=== PATIENT | female | born 1975 | race Caucasian/White ===

== ENCOUNTER 2017-06-07 17:45 | Observation (INO) ==
--- NOTE | 2017-06-07 17:50 | Emergency Department Note ---
Disposition Clinical Impression: Chest pain Disposition: Admitted As Inpatient Condition: Good Referrals: Sage Cunningham MD [Primary Care Provider] - Forms: ED Satisfaction Letter General Adult HPI - General Chief complaint: ED Chest Pain Stated complaint: CHEST PAIN Time Seen by Provider: 06/07/17 17:50 Source: patient Mode of arrival: private vehicle Limitations: no limitations Nursing Notes Reviewed: Yes Vital Signs Reviewed: Yes - History of Present Illness HPI Narrative: 41-year-old white female presents emergency department via ambulance complaining of a chest pain under her left breast. She describes it as a sharp burning pain under her left breast. She says it started while she was sitting and playing with her phone. She says it makes her feel short of breath. She says she also noted a quivering in her lower lip, but the pain did not radiate into her neck she says that she did feel it in her left armpit. She has had 4 baby aspirin in the ambulance and continues to have pain. She appears to be comfortable. She has had some valvular heart disease and has been told in the past that she had angina. She says that she has had a cardiac catheter that was negative. - Related Data Home Medications Medication Instructions Recorded Confirmed Gabapentin [Neurontin] 800 mg PO BID 02/28/15 06/07/17 Levothyroxine [Synthroid] 25 mcg PO QAM 02/28/15 06/07/17 Metformin [Glucophage] 1,000 mg PO BIDWM 02/28/15 06/07/17 Omeprazole [PriLOSEC] 40 mg PO DAILY 02/28/15 06/07/17 Simvastatin [Zocor] 20 mg PO HS 02/28/15 06/07/17 Albuterol Sulfate [Albuterol 2 puff IH Q6HR PRN 04/07/15 06/07/17 Inhaler] FLUoxetine HCl [Prozac] 60 mg PO DAILY 11/03/16 06/07/17 LORazepam [Ativan] 0.5 mg PO BID PRN 11/03/16 06/07/17 Lidocaine Patch [Lidoderm 5% patch] 1 patch TP DAILY PRN 11/03/16 06/07/17 Albuterol Neb [Proventil Neb] 2.5 mg IH TID PRN 12/21/16 06/07/17 Lisinopril [Zestril] 10 mg PO DAILY 12/21/16 06/07/17 Ranitidine HCl [Zantac] 300 mg PO HS 12/21/16 06/07/17 Tizanidine HCl [Zanaflex] 4 mg PO TID 12/21/16 06/07/17 Aspirin/Acetaminophen/Caffeine 1 tab PO DAILY PRN 01/21/17 06/07/17 [Excedrin Migraine Caplet] Gabapentin [Neurontin] 1,600 mg PO HS 01/21/17 06/07/17 Quetiapine Fumarate [SEROquel] 50 mg PO HS 01/21/17 06/07/17 Previous Rx's Medication Instructions Recorded Meclizine [Antivert] 25 mg PO TID PRN #18 tablet 03/14/17 Ondansetron ODT [Zofran ODT] 4 mg SL Q8HR PRN #14 tab.rapdis 03/14/17 Promethazine [Phenergan] 25 mg RC Q8HR #12 supp.rect 03/19/17 Tizanidine HCl [Zanaflex] 4 mg PO TID #12 cap 05/26/17 Allergies Allergy/AdvReac Type Severity Reaction Status Date / Time chlordiazepoxide Allergy Hallucinati Verified 06/07/17 17:54 [From Librax (with ng methscopolamine)] Clidinium Allergy Hallucinati Verified 06/07/17 17:54 [From Librax (with ng clidinium)] scopolamine Allergy Hallucinati Verified 06/07/17 17:54 [From Librax (with ng methscopolamine)] meperidine [From Demerol] AdvReac Rash Verified 06/07/17 17:54 metoclopramide [From Reglan] AdvReac Palpitation Verified 06/07/17 17:54 s nabumetone [From Relafen] AdvReac Palpitation Verified 06/07/17 17:54 s All systems ED: reviewed and negative except as stated. Constitutional: Denies: fever, chills, weakness, weight change Eyes: Denies: eye pain, eye discharge, vision change ENT ED: Denies: ear pain, throat pain, dental pain, hearing loss, epistaxis, congestion, dysphagia Cardiovascular: Reports: as per HPI, chest pain. Denies: palpitations, dyspnea on exertion, edema, syncope Respiratory: Reports: as per HPI, dyspnea Gastrointestinal: Denies: abdominal pain, nausea, vomiting, diarrhea, constipation, hematemesis, melena, hematochezia Genitourinary: Denies: dysuria, frequency, hematuria, discharge Musculoskeletal: Denies: back pain, neck pain, arthralgia, myalgia Integumentary: Denies: rash, abrasion, lesions Neurological: Denies: headache, weakness, numbness, paresthesias, confusion, abnormal gait, vertigo Psychiatric: Denies: anxiety, depression, suicidal thoughts, homicidal thoughts , auditory hallucinations, visual hallucinations Endocrine: Denies: fatigue Hematological/Lymphatic: Denies: easy bleeding, easy bruising Allergic/Immunologic: Denies: facial swelling, urticaria Past Medical History - Past Medical History Medical history: Reports: asthma, diabetes, GERD, hyperlipidemia, hypertension, thyroid disease, valvular heart disease, other Surgical history: Reports: cholecystectomy, hysterectomy, orthopedic, other, sinus surgery, other Psychiatric history: Reports: anxiety DIRECTOR OF CRITICAL CARE history: Reports: no DIRECTOR OF CRITICAL CARE history - Social History Smoking Status: Current every day smoker Smokeless Tobacco Status: No Alcohol use: Reports: none Drug use: Reports: none Physical Exam - General Limitations: no limitations General appearance: alert, in no apparent distress - Head Head exam: atraumatic, normocephalic, normal inspection - Eye Eye exam: Present: normal appearance, PERRL, EOMI - ENT ENT exam: normal exam, normal oropharynx, mucous membranes moist - Neck Neck exam: Present: normal inspection, full ROM, trachea midline - Chest Chest inspection: Present: normal inspection, symmetric chest wall rise. Absent : tenderness - Respiratory Respiratory exam: Present: normal lung sounds bilaterally - Cardiovascular Cardiovascular exam: Present: regular rate, normal rhythm, normal heart sounds - Abdominal Exam Abdominal exam: Present: soft, Non-Tender. Absent: tenderness, distention, guarding, rebound, rigidity, organomegaly, mass, pulsatile mass - Extremities Exam Extremities exam: Present: normal inspection, full ROM. Absent: tenderness, pedal edema - Back Exam Back exam: Present: normal inspection, full ROM. Absent: tenderness - Neurological Exam Neurological exam: Present: alert, oriented X3, CN II-XII intact. Absent: motor sensory deficit - Psychiatric Psychiatric exam: Present: normal affect, normal mood - Skin Skin exam: Present: warm, dry, intact, normal color Course Course Narrative: The patient's pain was relieved with nitroglycerin 2. Spoke with Dr. Potter at 1900 who is the hospitalist on-call and the patient will be observed overnight. Vital Signs Temperature 98.8 F 06/07/17 17:50 Pulse Rate 74 06/07/17 17:50 Respiratory Rate 16 06/07/17 17:50 Blood Pressure 161/84 06/07/17 17:50 O2 Sat by Pulse Oximetry 99 06/07/17 17:50 Temperature 98.8 F 06/07/17 17:50 Pulse Rate 77 06/07/17 19:14 Respiratory Rate 14 06/07/17 19:14 Blood Pressure 133/81 06/07/17 19:14 O2 Sat by Pulse Oximetry 98 06/07/17 19:14 Oxygen Delivery Oxygen Delivery Nasal Cannula Medical Decision Making - Lab Data Lab results reviewed: Yes I reviewed the patient's lab results. Result diagrams: 06/07/17 18:08 06/07/17 18:08 Lab Results 06/07/17 06/07/17 06/07/17 Range/Units 18:08 18:08 18:08 WBC 10.9 (4.3-11.1) K/mcL RBC 5.21 H (3.82-4.97) M/mcL Hgb 15.9 H (11.5-15.4) g/dL Hct 44.2 (35.3-44.9) % MCV 84.8 (83.0-100.0) fL MCH 30.5 (28.0-33.3) pg MCHC 36.0 H (31.6-35.5) g/dL RDW 12.1 (11.5-14.5) % Plt Count 181 (140-400) K/mcL MPV 8.9 L (9.4-12.4) fL Immature Gran % 0.3 (0-4) % Seg Neutrophils % 60.5 % Lymphocytes % 30.9 % Monocytes % 5.0 % Eosinophils % 2.7 % Basophils % 0.6 % Neutrophils # 6.6 (1.6-8.9) K/mcL Lymphocytes # 3.4 (0.6-4.6) K/mcL Monocytes # 0.6 (0.0-1.3) K/mcL Eosinophils # 0.3 (0.0-0.6) K/mcL Basophils # 0.1 (0.0-0.2) K/mcL PT 11.3 (9.4-12.1) Seconds INR 1.1 Sodium 138 (136-145) mEq/L Potassium 3.8 (3.5-4.5) mEq/L Chloride 101 (98-109) mEq/L Carbon Dioxide 27 (19-29) mEq/L BUN 6 L (7-20) mg/dL Creatinine 0.80 (0.57-1.11) mg/dL Est GFR ( Amer) > 60 (> 60) Est GFR (Non-Af Amer) > 60 (> 60) BUN/Creatinine Ratio 8 (6-26) Glucose 252 H (70-99) mg/dL Calculated Osmolality 292 (280-300) Calcium 9.3 (8.6-10.8) mg/dL Total Bilirubin 0.5 (0.2-1.2) mg/dL AST 22 (5-34) Units/L ALT 27 (0-55) Units/L Alkaline Phosphatase 55 (38-126) Units/L Troponin I (0-0.03) ng/mL Serum Total Protein 6.4 (6.0-8.3) g/dL Albumin 3.6 (3.5-5.0) g/dL Globulin 2.8 (2.4-3.5) g/dL Albumin/Globulin Ratio 1.3 (1.1-2.2) 06/07/17 Range/Units 18:08 WBC (4.3-11.1) K/mcL RBC (3.82-4.97) M/mcL Hgb (11.5-15.4) g/dL Hct (35.3-44.9) % MCV (83.0-100.0) fL MCH (28.0-33.3) pg MCHC (31.6-35.5) g/dL RDW (11.5-14.5) % Plt Count (140-400) K/mcL MPV (9.4-12.4) fL Immature Gran % (0-4) % Seg Neutrophils % % Lymphocytes % % Monocytes % % Eosinophils % % Basophils % % Neutrophils # (1.6-8.9) K/mcL Lymphocytes # (0.6-4.6) K/mcL Monocytes # (0.0-1.3) K/mcL Eosinophils # (0.0-0.6) K/mcL Basophils # (0.0-0.2) K/mcL PT (9.4-12.1) Seconds INR Sodium (136-145) mEq/L Potassium (3.5-4.5) mEq/L Chloride (98-109) mEq/L Carbon Dioxide (19-29) mEq/L BUN (7-20) mg/dL Creatinine (0.57-1.11) mg/dL Est GFR ( Amer) (> 60) Est GFR (Non-Af Amer) (> 60) BUN/Creatinine Ratio (6-26) Glucose (70-99) mg/dL Calculated Osmolality (280-300) Calcium (8.6-10.8) mg/dL Total Bilirubin (0.2-1.2) mg/dL AST (5-34) Units/L ALT (0-55) Units/L Alkaline Phosphatase (38-126) Units/L Troponin I 0.02 (0-0.03) ng/mL Serum Total Protein (6.0-8.3) g/dL Albumin (3.5-5.0) g/dL Globulin (2.4-3.5) g/dL Albumin/Globulin Ratio (1.1-2.2) - Radiology Data Radiology results reviewed: Yes I reviewed the patient's radiology results. One view of the chest: IMPRESSION: Clear lungs. D/ / Rito Murphy MD / Rito Murphy MD - EKG Data EKG #1 EKG results narrative: Twelve-lead EKG showed normal sinus rhythm, rate of 76, normal axis, no acute ST elevation or depression appreciated: Normal EKG
[2017-06-07 18:13] LABS: Basophils # 0.1 K/mcL (0.0-0.2); Basophils % 0.6 %; Eosinophils # 0.3 K/mcL (0.0-0.6); Eosinophils % 2.7 %; Hematocrit 44.2 % (35.3-44.9); Hemoglobin 15.9 g/dL (11.5-15.4); Immature Granulocytes % 0.3 % (0-4); Lymphocytes # 3.4 K/mcL (0.6-4.6); Lymphocytes % 30.9 %; Mean Corpuscular Hemoglobin 30.5 pg (28.0-33.3); Mean Corpuscular Volume 84.8 fL (83.0-100.0); Mean Platelet Volume 8.9 fL (9.4-12.4); Monocytes # 0.6 K/mcL (0.0-1.3); Neutrophils # 6.6 K/mcL (1.6-8.9); Platelet Count 181 K/mcL (140-400); Red Blood Count 5.21 M/mcL (3.82-4.97); Red Cell Distribution Width 12.1 % (11.5-14.5); Segmented Neutrophils % 60.5 %
[2017-06-07 18:18] LABS: INR 1.1; Prothrombin Time 11.3 Seconds (9.4-12.1)
[2017-06-07 18:27] LABS: Alanine Aminotransferase 27 Units/L (0-55); Albumin 3.6 g/dL (3.5-5.0); Albumin/Globulin Ratio 1.3 (1.1-2.2); Alkaline Phosphatase 55 Units/L (38-126); Aspartate Amino Transferase 22 Units/L (5-34); BUN/Creatinine Ratio 8 (6-26); Bilirubin,Total 0.5 mg/dL (0.2-1.2); Blood Urea Nitrogen 6 mg/dL (7-20); Calcium 9.3 mg/dL (8.6-10.8); Carbon Dioxide 27 mEq/L (19-29); Chloride 101 mEq/L (98-109); Globulin 2.8 g/dL (2.4-3.5); Glucose 252 mg/dL (70-99); Osmolality,Calculated 292 (280-300); Potassium 3.8 mEq/L (3.5-4.5); Sodium 138 mEq/L (136-145); Total Protein 6.4 g/dL (6.0-8.3); eGFR For African Americans > 60 (> 60); eGFR For Non-African Americans > 60 (> 60)
[2017-06-07] MEDS: Nitroglycerin 0.4 MG TAB.SUBL SL PRN ×2 (18:36→18:47)
[2017-06-07] MEDS ORDERED: Naloxone 0.4 MG/ML INJ IVP PRN (20:46)
[2017-06-07] MEDS ORDERED: Ondansetron 4 MG/2 ML VIAL IVP ONE (20:46)
[2017-06-07] MEDS ORDERED: *HR* Promethazine 25 MG/ML VIAL IVP PRN (20:46)
[2017-06-07] MEDS ORDERED: *HR* Morphine 2 MG/ML SYRINGE IVP ONE (20:46)
[2017-06-07] MEDS ORDERED: Nitroglycerin 0.4 MG TAB.SUBL SL PRN (20:46)
[2017-06-07] MEDS ORDERED: Ondansetron ODT 4 MG TAB.RAPDIS SL PRN ×2 (20:46)
[2017-06-07] MEDS ORDERED: Albuterol 2.5 MG/3 ML NEBULIZER IH PRN (20:46)
[2017-06-07] MEDS ORDERED: Acetaminophen/Aspirin/Caffeine TABLET PO PRN (20:46)
[2017-06-07] MEDS ORDERED: Acetaminophen 325 MG TABLET PO PRN (20:46)
[2017-06-07] MEDS ORDERED: Ibuprofen 400 MG TABLET PO PRN (20:46)
[2017-06-07] MEDS ORDERED: *HR* LORazepam 0.5 MG TABLET PO PRN (20:46)
[2017-06-07] MEDS ORDERED: Famotidine 20 MG TABLET PO SCH (21:00)
[2017-06-07] MEDS ORDERED: TIZANIDINE HCL 4 MG PO SCH (21:00)
[2017-06-07] MEDS ORDERED: Gabapentin 400 MG CAPSULE PO SCH ×2 (21:00)
[2017-06-07] MEDS: tiZANidine 4 MG TABLET PO SCH (22:47)
[2017-06-08] MEDS: *HR* Morphine 2 MG/ML SYRINGE IVP PRN ×2 (02:22→09:07)
[2017-06-08] MEDS ORDERED: Levothyroxine 25 MCG TABLET PO SCH (07:00)
[2017-06-08] MEDS ORDERED: *HR* Metformin 500 MG TABLET PO SCH (08:00)
[2017-06-08] MEDS ORDERED: FLUoxetine 20 MG CAPSULE PO SCH (09:00)
[2017-06-08] MEDS: Gabapentin 400 MG CAPSULE PO SCH ×2 (09:12→12:35)
[2017-06-08] MEDS: tiZANidine 4 MG TABLET PO SCH (09:13)
--- NOTE | 2017-06-08 11:53 | Internal Med History&Physical ---
Date of Encounter: 06/08/17 Time of Encounter: 11:44 Assessment and Plan (1) Chest pain Current visit: Yes Status: Acute Qualifiers: Chest pain type: unspecified Qualified Code(s): R07.9 - Chest pain, unspecified (2) Chest pain Current visit: Yes Status: Acute Patient admitted for complaints of chest pain rule out OR. Patient with vague complaints of pain that radiates from underneath her left breast to the left chest flank and describes her pain as a sharp intermittent. Patient was complaints of palpitations and slight dyspnea during ER admission no further complaints since her admission. She has had 2 sets of troponins which were negative. Chest x-ray was nonacute. Patient is complaining of pain on several occasions since her admission and has been medicated with morphine stating minimal relief. Patient with long history of chest pain: Back at least 5 years during which she had a catheterization which was negative and echocardiogram showed aortic valve regurgitation. We will continue with serial troponins. We will discuss with Dr. Potter for continued evaluation Qualifiers: Chest pain type: unspecified Qualified Code(s): R07.9 - Chest pain, unspecified (3) Type 2 diabetes mellitus Current visit: No Status: Chronic As with uncontrolled diabetes. We will continue with fingersticks which have shown consistently greater than 200. We will continue with oral diabetic medications and cover with sliding scale. Patient states last hemoglobin A1c greater than 9. We will obtain a hemoglobin A1c with next blood draw. Qualifiers: Diabetes mellitus complication detail: with other neurological complication Diabetes mellitus senior care insulin use: without middle or intermediate school principal use Qualified Code(s): E11.49 - Type 2 diabetes mellitus with other diabetic neurological complication (4) Hypertension Current visit: No Status: Chronic Vital signs stable. We will continue his current medications Qualifiers: Hypertension type: essential hypertension Qualified Code(s): I10 - Essential (primary) hypertension (5) Bipolar II disorder Current visit: No Status: Chronic Currently no acute issues. We will continue patient on her current psychiatric medications. Patient is interacting well with staff with no behavior issues reported. (6) Asthma Current visit: No Status: Chronic No acute issues. Lungs are clear to auscultation. Patient does continue with complaints of pain to left chest flank, but no pulmonary origin noted during exam. Continue with current medications Qualifiers: Asthma severity: mild Asthma persistence: unspecified Asthma complication type: uncomplicated Qualified Code(s): J45.909 - Unspecified asthma, uncomplicated Internal Medicine - H&P: HPI Admitted From: Home Plans for Post Hospital Care: Home History of present illness: Ms. Salgado is a 41 year old female Patient was admitted through the emergency department last evening with complaints of chest pain and rule out OR. Patient states that yesterday afternoon she began to have chest pain to her left chest flank underneath her left breast which radiated to her left lateral chest. Patient described the pain as intermittent sharp and states that no activity increased or relieve the pain. She states that her pain she expresses today was similar to pain she had in the past. Patient states at the time of her chest pain yesterday she was also having palpitations and was diaphoretic. States that she felt somewhat short of breath, but also relates a history of asthma. States that she did not use her inhaler yesterday. Patient states that she has had palpitations before in the past, but cannot relate those to any activity also. States she has had syncopal episodes in the past and has been evaluated by her PCP. States that she has had a tilt table test which was negative. Patient states that she has had chest pain on several occasions over the past several years. Patient relates that about approximately 5 years ago she had a cardiac catheter which was negative for vascular disease. States she has also had last echocardiogram approximately 5 years ago and that had shown slight aortic valve regurgitation. Patient states since that, over the past 5 years she has had several admissions for chest pain but has been ruled out on each admission. Patient states that her pain was relieved during her ER visit with his had several episodes of the pain returning since her admission overnight. She states that she is received pain medication by IV which has decreased pain but it is not completely left. States no relief with nitroglycerin during ER. Patient has had 2 sets of troponins which both have been negative. Patient denies any further palpitations or shortness of breath since her admission. Patient states a history of uncontrolled diabetes. She states that her recent hemoglobin A1c was greater than 9 and that during fingersticks at home she routinely measures greater than 200. Also states a history of tobacco abuse, smoking 1-2 packs cigarettes a day. Past Med Surg Social Fam HX - Past Medical History Medical history: asthma, diabetes, GERD, hyperlipidemia, hypertension, thyroid disease, valvular heart disease, other Psychiatric history: anxiety, other (Patient states history of bipolarism) - Past Surgical History Surgical History: cholecystectomy, hysterectomy, orthopedic, other, sinus surgery, other - Social History Smoking Status: Current every day smoker Packs per day: 1-1.5 Smokeless Tobacco Status: No Alcohol use: none Drug use: none Current living situation: Home - Independent Activity Level: Independent ambulation Recent Out of Country Travel Within the Last 8 Weeks: No Exposure or Possible Exposure to Illness During Travel: No - Family History Father Living Status: Still Living Hx Family Cardiac Disorders: Yes (HTN, CVA) Hx Family Cancer: Yes (Lung) Hx Family GI Disorders: Yes (Ulcers, hiatal hernia) Hx Family Endocrine Disorder: Yes (DM) Hx Family Neuromuscular Disorders: No Hx Family Neurologic Disorders: No Hx Family HEENT Disorders: No Hx Family Autoimmune Disorders: No Internal Medicine - H&P: Meds Gabapentin [Neurontin] 800 mg PO BID 02/28/15 [History] Levothyroxine [Synthroid] 25 mcg PO QAM 02/28/15 [History] Metformin [Glucophage] 1,000 mg PO BIDWM 02/28/15 [History] Omeprazole [PriLOSEC] 40 mg PO DAILY 02/28/15 [History] Simvastatin [Zocor] 20 mg PO HS 02/28/15 [History] Albuterol Sulfate [Albuterol Inhaler] 2 puff IH Q6HR PRN 04/07/15 [History] FLUoxetine HCl [Prozac] 60 mg PO DAILY 11/03/16 [History] LORazepam [Ativan] 0.5 mg PO BID PRN 11/03/16 [History] Lidocaine Patch [Lidoderm 5% patch] 1 patch TP DAILY PRN 11/03/16 [History] Albuterol Neb [Proventil Neb] 2.5 mg IH TID PRN 12/21/16 [History] Lisinopril [Zestril] 10 mg PO DAILY 12/21/16 [History] Ranitidine HCl [Zantac] 300 mg PO HS 12/21/16 [History] Tizanidine HCl [Zanaflex] 4 mg PO TID 12/21/16 [History] Aspirin/Acetaminophen/Caffeine [Excedrin Migraine Caplet] 1 tab PO DAILY PRN [History] Gabapentin [Neurontin] 1,600 mg PO HS 01/21/17 [History] Quetiapine Fumarate [SEROquel] 50 mg PO HS 01/21/17 [History] Meclizine [Antivert] 25 mg PO TID PRN #18 tablet 03/14/17 [Rx] Ondansetron ODT [Zofran ODT] 4 mg SL Q8HR PRN #14 tab.rapdis 03/14/17 [Rx] Promethazine [Phenergan] 25 mg RC Q8HR #12 supp.rect 03/19/17 [Rx] Tizanidine HCl [Zanaflex] 4 mg PO TID #12 cap 05/26/17 [Rx] 3 Allergy/AdvReac Type Severity Reaction Status Date / Time chlordiazepoxide Allergy Hallucinati Verified 06/07/17 17:54 [From Librax (with ng methscopolamine)] Clidinium Allergy Hallucinati Verified 06/07/17 17:54 [From Librax (with ng clidinium)] scopolamine Allergy Hallucinati Verified 06/07/17 17:54 [From Librax (with ng methscopolamine)] meperidine [From Demerol] AdvReac Rash Verified 06/07/17 17:54 metoclopramide [From Reglan] AdvReac Palpitation Verified 06/07/17 17:54 s nabumetone [From Relafen] AdvReac Palpitation Verified 06/07/17 17:54 s All Systems PM: A 10-system review of systems was performed and is negative for pertinent findings except as documented above in the HPI. - Constitutional Constitutional: no chills, no fever(s), no night sweats - EENT Eyes: no change in vision, no discharge, no pain, no photophobia Ears: no ear discharge, no ear pain, no tinnitus Nose, mouth and throat: no dysphagia, no nasal discharge, no neck pain, no sore throat - Cardiovascular Cardiovascular ROS IM: chest pain, palpitations, no dyspnea, no irregular heart rhythm, no lightheadedness - Respiratory Respiratory: dyspnea, no dyspnea on exertion, no wheezing, no stridor, no pain on inspiration, no chest congestion, no excessive phlegm production - Gastrointestinal Gastrointestinal: no abdominal pain, no diarrhea, no hematemesis, no hematochezia, no melena, no nausea, no vomiting - Genitourinary Genitourinary: no change in urinary stream, no dysuria, no flank pain, no hematuria - Musculoskeletal Musculoskeletal ROS IM: no numbness, no tingling - Integumentary Integumentary IM: no rash, no unusual bruising - Neurological Neurological ROS: no confusion, no convulsions, no focal weakness, no numbness, no tingling, no tremor(s) - Psychiatric Psychiatric: anxiety - Allergic/Immunologic Allergic/Immunologic: as per HPI - Constitutional Vitals: Temp Pulse Resp BP Pulse Ox 98.3 F 73 16 114/73 97 06/08/17 07:42 06/08/17 07:42 06/08/17 07:42 06/08/17 07:42 06/08/17 07:42 General appearance: Present: cooperative, A&O X 3, pleasant - Head Head exam: Present: atraumatic, normocephalic - Neck Neck exam general surgery: Present: supple, trachea midline. Absent: lymphadenopathy - Respiratory Respiratory exam: Present: CTAB. Absent: accessory muscle use, rales, rhonchi, wheezes Additional comments: Lungs clear to refills and diminished throughout bases. No wheezes or rubs heard. - Cardiovascular Cardiovascular exam: Present: RRR, +S1, +S2, systolic murmur. Absent: diastolic murmur, gallop, rubs Additional comments: No chest tenderness on palpation. Patient has a soft systolic murmur. - GI/Abdominal GI/Abdominal exam: Present: normal bowel sounds, soft, no peritoneal signs. Absent: distended, tenderness - Extremities Exam Extremities exam: Present: warm, radial pulses palpable and symmetrical. Absent : calf tenderness, cyanotic, pedal edema - Neurological Exam Neurological exam: Present: CN II-XII intact, oriented X3, no focal deficits. Absent: pronater drift, facial droop, speech deficit - Skin Skin exam: Present: dry, intact Internal Med - H&P Results - Labs CBC & Chem 7: 06/07/17 18:08 06/07/17 18:08 Labs: Cardiac Enzymes 06/08/17 06/08/17 Range/Units 02:10 08:33 Troponin I 0.01 0.00 (0-0.03) ng/mL - VTE Documentation of Mechanical Device: Graduated compression elastic hosiery
[2017-06-08 12:57] VITALS: BP 111/56
--- NOTE | 2017-06-08 13:46 | Discharge Summary ---
Date of Encounter: 06/08/17 Time of Encounter: 13:44 - Discharge Medications Home Medications: Gabapentin [Neurontin] 800 mg PO BID 02/28/15 [History] Levothyroxine [Synthroid] 25 mcg PO QAM 02/28/15 [History] Metformin [Glucophage] 1,000 mg PO BIDWM 02/28/15 [History] Omeprazole [PriLOSEC] 40 mg PO DAILY 02/28/15 [History] Simvastatin [Zocor] 20 mg PO HS 02/28/15 [History] Albuterol Sulfate [Albuterol Inhaler] 2 puff IH Q6HR PRN 04/07/15 [History] FLUoxetine HCl [Prozac] 60 mg PO DAILY 11/03/16 [History] LORazepam [Ativan] 0.5 mg PO BID PRN 11/03/16 [History] Lidocaine Patch [Lidoderm 5% patch] 1 patch TP DAILY PRN 11/03/16 [History] Albuterol Neb [Proventil Neb] 2.5 mg IH TID PRN 12/21/16 [History] Lisinopril [Zestril] 10 mg PO DAILY 12/21/16 [History] Ranitidine HCl [Zantac] 300 mg PO HS 12/21/16 [History] Tizanidine HCl [Zanaflex] 4 mg PO TID 12/21/16 [History] Aspirin/Acetaminophen/Caffeine [Excedrin Migraine Caplet] 1 tab PO DAILY PRN [History] Gabapentin [Neurontin] 1,600 mg PO HS 01/21/17 [History] Quetiapine Fumarate [SEROquel] 50 mg PO HS 01/21/17 [History] Meclizine [Antivert] 25 mg PO TID PRN #18 tablet 03/14/17 [Rx] Ondansetron ODT [Zofran ODT] 4 mg SL Q8HR PRN #14 tab.rapdis 03/14/17 [Rx] Promethazine [Phenergan] 25 mg RC Q8HR #12 supp.rect 03/19/17 [Rx] Tizanidine HCl [Zanaflex] 4 mg PO TID #12 cap 05/26/17 [Rx] Allergies/Adverse Reactions: 3 Allergy/AdvReac Type Severity Reaction Status Date / Time chlordiazepoxide Allergy Hallucinati Verified 06/07/17 17:54 [From Librax (with ng methscopolamine)] Clidinium Allergy Hallucinati Verified 06/07/17 17:54 [From Librax (with ng clidinium)] scopolamine Allergy Hallucinati Verified 06/07/17 17:54 [From Librax (with ng methscopolamine)] meperidine [From Demerol] AdvReac Rash Verified 06/07/17 17:54 metoclopramide [From Reglan] AdvReac Palpitation Verified 06/07/17 17:54 s nabumetone [From Relafen] AdvReac Palpitation Verified 06/07/17 17:54 s Date of admission: 06/07/17 19:18 Primary care physician: Sage Cunningham MD Discharging clinician: Yair Potter Anticipated date of discharge: 06/08/17 - Patient Status Disposition: Home, Self-Care Functional capacity at discharge: independent ambulation Overall status at discharge: patient is back to baseline - Discharge Instructions Follow Up With: Sage Cunningham MD [Primary Care Provider] - - Diet and Activity Activity: increase activity as tolerated Hospital course: Ms. Salgado is a 41 year old female - Time Spent with Patient Total time spent providing and/or coordinating discharge services: Less than 30 minutes - Constitutional Vitals: Temp Pulse Resp BP Pulse Ox 97.6 F 84 14 111/56 97 06/08/17 12:00 06/08/17 12:00 06/08/17 12:00 06/08/17 12:00 06/08/17 12:00 General appearance: Present: cooperative, A&O X 3, pleasant - Head Head exam: Present: atraumatic, normal inspection, normocephalic - Neck Neck exam general surgery: Present: supple, trachea midline. Absent: lymphadenopathy - Respiratory Respiratory exam: Present: CTAB. Absent: accessory muscle use, rales, rhonchi, wheezes - Cardiovascular Cardiovascular exam: Present: RRR, +S1, +S2. Absent: diastolic murmur, gallop, rubs, systolic murmur - VTE Documentation of Mechanical Device: Graduated compression elastic hosiery
--- NOTE | 2017-06-09 13:47 | Electrocardiograph Report ---
[place] [id number] Test Date: 2017-06-07 Pat Name: Ana María Salgado Department: 2001 Room: 115 Gender: F Director Of Leadership Development: : 1975 Requested By: Frank Bills Order Number: [id number] Reading MD: Pallavi Cook Measurements Intervals [place] Rate: 76 P: 47 [place]: 154 QRS: 4 QRSD: 86 T: 31 QT: 370 QTc: 401 Interpretive Statements SINUS RHYTHM Electronically Signed On 06-09-2017 13:46:13 EST by Pallavi Cook
== END 2017-06-08 14:00 | disposition home or self-care (01) ==
LOC: EMEROOGRE 17:45 → INPGRE 17:45
PROVIDERS: ADMIT Family Medicine; ATTEND Internal Medicine